=== PATIENT | male | born 1995 | race Caucasian/White ===

== ENCOUNTER 2023-02-04 16:21 | Emergency (ER) | payer OTHER ==
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
[2023-02-04] MEDS ORDERED: HYDROCODONE/APAP 10/325 TAB ONE (16:49)
[2023-02-04] MEDS ORDERED: IBUPROFEN 400 MG TAB ONE (16:49)
[2023-02-04] MEDS ORDERED: IBUPROFEN 200 MG TAB PO ONE (16:49)
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
[2023-02-04 18:18] VITALS: TEMP 98.4
[2023-02-04 18:19] VITALS: BP 135/86; O2SAT 98
== END 2023-02-04 17:39 | disposition home or self-care (01) ==
LOC: ER 16:21
DX: S09.90XA Unspecified injury of head, initial encounter (principal); J01.00 Acute maxillary sinusitis, unspecified; Y09 Assault by unspecified means
CPT/HCPCS: 70450; 70486; 72125; 76377